=== PATIENT | male | born 1975 | race African-American/Black ===

== ENCOUNTER 2016-10-27 21:09 | Emergency (ER) | payer SELFPAY ==
--- NOTE | 2016-10-27 21:22 | PDOC ---
Rapid Medical Evaluation Time Seen by Provider: 10/27/16 21:19 Medical Evaluation: Allergies Allergy/AdvReac Type Severity Reaction Status Date / Time No Known Allergies Allergy Verified 11/28/13 22:12 10/27/16 21:19 I have performed a brief in-person evaluation of this patient. The patient presents with a chief complaint of: dysuria, penile discharge x 1 week Pertinent physical exam findings: vss I have ordered the following: gc, ua, ucx The pt will be seen in fast track
[2016-10-27 21:41] VITALS: BP 158/89; PULSE 84; TEMP 97.8; BMI 27.1
[2016-10-27 21:51] LABS: URINE APPEARANCE CLEAR; URINE BILIRUBIN NEGATIVE (NEGATIVE); URINE BLOOD NEGATIVE (NEGATIVE); URINE COLOR LTYELLOW; URINE GLUCOSE (UA) NEGATIVE (NEGATIVE); URINE KETONE NEGATIVE (NEGATIVE); URINE LEUK ESTERASE NEGATIVE (NEGATIVE); URINE NITRITE NEGATIVE (NEGATIVE); URINE PROTEIN NEGATIVE (NEGATIVE); URINE UROBILINOGEN NEGATIVE E.U./dl (0.2-1.0)
[2016-10-27] MEDS ORDERED: AZITHROMYCIN 1 GM PACKET PO ONE (22:27)
[2016-10-27] MEDS ORDERED: AZITHROMYCIN 1 GM PACKET ONE (22:44)
[2016-10-27] MEDS ORDERED: LIDOCAINE HCL/PF 1% SDV 5ML VIAL ONE ×2 (22:45→22:50)
[2016-10-27] MEDS ORDERED: cefTRIAXone SODIUM 1 GM VIAL ONE (22:45)
--- NOTE | 2016-10-27 23:04 | PDOC ---
History of Present Illness - General History Source: Patient Exam Limitations: No Limitations - History of Present Illness Initial Comments: 10/27/16 23:27 41-year-old male with past medical history of an STD 20 years ago presents with urethral discharge and dysuria for several days. Patient recently had unprotected sex with a female. She is also undergoing a doctor's visit for potential STD. Patient reports that this feels like his prior STD. <Shoaib Mensah - Last Filed: 10/27/16 23:27> - General History Source: Patient Exam Limitations: No Limitations <Hugo Ocasio - Last Filed: 11/01/16 09:42> - General Chief Complaint: Urinary Problem Stated Complaint: urinary problem Time Seen by Provider: 10/27/16 21:19 Past History <Shoaib Mensah - Last Filed: 10/27/16 23:27> - Psycho/Social/Smoking Cessation Hx Anxiety: No Suicidal Ideation: No Smoking History: Current every day smoker Have you smoked in the past 12 months: Yes Number of Cigarettes Smoked Daily: 0 Cigars Per Day: 3 Information on smoking cessation initiated: No Hx Alcohol Use: Yes (daily) Drug/Substance Use Hx: No Substance Use Type: Alcohol <Hugo Ocasio - Last Filed: 11/01/16 09:42> - Past Medical History Allergies/Adverse Reactions: Allergies Allergy/AdvReac Type Severity Reaction Status Date / Time No Known Allergies Allergy Verified 11/28/13 22:12 Home Medications: Ambulatory Orders No Home Medications 0 dose .ROUTE UTDICT 09/14/13 Amox-Tr/K Cl [Augmentin 875-125mg Tablet -] 1 tab PO BID #20 tablet 11/28/13 Review of Systems - Review of Systems Able to Perform ROS?: Yes Comments:: 10/27/16 23:29 GENERAL/CONSTITUTIONAL: No fever or chills. No weakness. HEAD, EYES, EARS, NOSE AND THROAT: No change in vision. No ear pain or discharge. No sore throat. CARDIOVASCULAR: No chest pain or shortness of breath. RESPIRATORY: No cough, wheezing, or hemoptysis. GASTROINTESTINAL: No nausea, vomiting, diarrhea or constipation. GENITOURINARY: (+) Dysuria. urethral discharge. No frequency. MUSCULOSKELETAL: No joint or muscle swelling or pain. No neck or back pain. SKIN: No rash NEUROLOGIC: No headache, vertigo, loss of consciousness, or change in strength/ sensation. ENDOCRINE: No increased thirst. No abnormal weight change. HEMATOLOGIC/LYMPHATIC: No anemia, easy bleeding, or history of blood clots. ALLERGIC/IMMUNOLOGIC: No hives or skin allergy. <Shoabi Mensah - Last Filed: 10/27/16 23:27> *Physical Exam - Vital Signs Last Vital Signs Temp Pulse Resp BP Pulse Ox 97.8 F 84 18 158/89 100 10/27/16 21:21 10/27/16 21:21 10/27/16 21:21 10/27/16 21:21 10/27/16 21:21 - Physical Exam Comments: 10/27/16 23:29 GENERAL: Awake, alert, and fully oriented, in no acute distress HEAD: No signs of trauma EYES: PERRLA, EOMI, sclera anicteric, conjunctiva clear ENT: Auricles normal inspection, hearing grossly normal, nares patent, oropharynx clear without exudates. Moist mucosa NECK: Normal ROM, supple, no lymphadenopathy, JVD, or masses LUNGS: Breath sounds equal, clear to auscultation bilaterally. No wheezes, and no crackles HEART: Regular rate and rhythm, normal S1 and S2, no murmurs, rubs or gallops ABDOMEN: Soft, nontender, normoactive bowel sounds. No guarding, no rebound. No masses EXTREMITIES: Normal range of motion, no edema. No clubbing or cyanosis. No cords, erythema, or tenderness GENITAL: Circumcised, testicle no lesions or rash. No testicular tenderness NEUROLOGICAL: Cranial nerves II through XII grossly intact. Normal speech, normal gait SKIN: Warm, Dry, normal turgor, no rashes or lesions noted. <Shoaib Mensah - Last Filed: 10/27/16 23:27> - Vital Signs Last Vital Signs Temp Pulse Resp BP Pulse Ox 97.8 F 84 18 158/89 100 10/27/16 21:21 10/27/16 21:21 10/27/16 21:21 10/27/16 21:21 10/27/16 21:21 <Hugo Ocasio - Last Filed: 11/01/16 09:42> ED Treatment Course - ADDITIONAL ORDERS Additional order review: Laboratory Results 10/27/16 21:15 Urine Color Ltyellow Urine Appearance Clear Urine pH 6.0 Ur Specific [place] 1.027 Urine Protein Negative Urine Glucose (UA) Negative Urine Ketones Negative Urine Blood Negative Urine Nitrite Negative Urine Bilirubin Negative Urine Urobilinogen Negative Ur Leukocyte Esterase Negative - Medications Given in the ED: ED Medications Discontinued Medications Generic Name Dose Route Start Last Admin Trade Name Mir PRN Reason Stop Dose Admin Azithromycin 1 gm 10/27/16 22:27 10/27/16 23:05 Zithromax - PO 10/27/16 22:28 1 gm ONCE ONE Administration Ceftriaxone Sodium 250 mg 10/27/16 22:27 10/27/16 23:04 Rocephin - IM 10/27/16 22:28 250 mg ONCE ONE Administration <Shoaib Mensah - Last Filed: 10/27/16 23:27> - ADDITIONAL ORDERS Additional order review: Laboratory Results 10/27/16 21:15 Urine Color Ltyellow Urine Appearance Clear Urine pH 6.0 Ur Specific [place] 1.027 Urine Protein Negative Urine Glucose (UA) Negative Urine Ketones Negative Urine Blood Negative Urine Nitrite Negative Urine Bilirubin Negative Urine Urobilinogen Negative Ur Leukocyte Esterase Negative <Hugo Ocasio - Last Filed: 11/01/16 09:42> Medical Decision Making - Medical Decision Making 10/27/16 23:04 A portion of this note was documented by scribe services under my direction. I have reviewed the details of the note, within reason, and agree with the documentation with the following case summary and management plan written by me. Patient treated in the ED. Nursing notes are reviewed and incorporated into the medical decision-making. Vital signs reviewed. Peripheral IV access obtained by the nurse, laboratory studies are drawn and sent, reviewed and interpreted by myself. Vital Signs Temp Pulse Resp BP Pulse Ox 97.8 F 84 18 158/89 100 10/27/16 21:21 10/27/16 21:21 10/27/16 21:21 10/27/16 21:21 10/27/16 21:21 41-year-old male with past medical history of an STD 20 years ago presents with urethral discharge and dysuria for several days. Patient recently had unprotected sex with a female. She is also undergoing a doctor's visit for potential STD. Patient reports that this feels like his prior STD. UA reviewed. We'll treat empirically for gonorrhea and chlamydia. Azithromycin and Ceftriaxone ordered. I discussed the physical exam findings, ancillary test results and final diagnoses with the patient. I answered all of the patient's questions. The patient was satisfied with the care received and felt comfortable with the discharge plan and treatment plan. The patient will call their primary care physician within 24 hours to arrange follow-up and will return to the Emergency Department with any new, persistant or worsening symptoms. <Hugo Ocasio - Last Filed: 11/01/16 09:42> *DC/Admit/Observation/Transfer - Attestations Scribe Attestion: 10/27/16 23:29 Documentation prepared by Shoaib Mensah, acting as certified medical biller for Hugo Ocasio MD. <Shoaib Mensah - Last Filed: 10/27/16 23:27> - Discharge Dispostion Admit: No <Hugo Ocasio - Last Filed: 11/01/16 09:42> Diagnosis at time of Disposition: STD (male) - Discharge Dispostion Disposition: HOME Condition at time of disposition: Stable - Referrals Referrals: Robe Frias MD [Primary Care Provider] - - Patient Instructions Printed Discharge Instructions: How to Detect and Treat STDs, Facts About Sexually Transmitted Infections Additional Instructions: Please call back in 2 to 3 days for your gonorrhea and chlamydia results. Call [phone] option # 1. You have been treated anyway for gonorrhea and chlamydia given your history. Please follow up with your doctor.
== END 2016-10-27 23:08 | disposition home or self-care (01) ==
LOC: JER 21:09 → JERFT 21:09 → JER 23:08
DX: A64 Unspecified sexually transmitted disease (principal); F17.210 Nicotine dependence, cigarettes, uncomplicated
CPT/HCPCS: 36415; 81003; 87086; 87491; 87591; 99281-25

== ENCOUNTER 2017-11-07 02:38 | Emergency (ER) | payer SELFPAY ==
--- NOTE | 2017-11-07 02:57 | PDOC ---
History of Present Illness - General Chief Complaint: Urinary Problem Stated Complaint: U.T.I. Time Seen by Provider: 11/07/17 02:56 - History of Present Illness Initial Comments: 11/07/17 03:13 42-year-old male complaining of dysuria and penile discharge for 3 days. Patient reports unprotected sex with a female partner several days ago. On sure of STD exposure. Patient denies fever chills, nausea vomiting diarrhea, abdominal pain, rash/sores. Denies past medical history of STDs. Past History - Past Medical History Allergies/Adverse Reactions: Allergies Allergy/AdvReac Type Severity Reaction Status Date / Time No Known Allergies Allergy Verified 11/07/17 03:10 Home Medications: Ambulatory Orders No Home Medications 0 dose .ROUTE UTDICT 09/14/13 Amox-Tr/K Cl [Augmentin 875-125mg Tablet -] 1 tab PO BID #20 tablet 11/28/13 Phenazopyridine HCl [Pyridium] 100 mg PO BID #10 tablet 11/07/17 COPD: No - Suicide/Smoking/Psychosocial Hx Smoking History: Current every day smoker Have you smoked in the past 12 months: Yes Number of Cigarettes Smoked Daily: 0 Cigars Per Day: 20 Hx Alcohol Use: Yes (daily) Drug/Substance Use Hx: No Substance Use Type: Alcohol Review of Systems - Review of Systems Able to Perform ROS?: Yes Is the patient limited Faroese proficient: No Constitutional: No: Symptoms Reported, See HPI, Chills, Diaphoresis, Fever, Loss of Appetite, Malaise, Night Sweats, Weakness, Weight Stable, Unintentional Wgt. Loss, Unexplained wgt Loss, Other : Yes: Dysuria, Flank Pain, Other (penile discharge). No: Testicular Mass, Testicular Swelling, Testicular Pain *Physical Exam - Vital Signs 11/07/17 03:15 Last Vital Signs Temp Pulse Resp BP Pulse Ox 98.1 F 103 H 14 115/67 98 11/07/17 03:10 11/07/17 03:10 11/07/17 03:10 11/07/17 03:10 11/07/17 03:10 - Physical Exam General Appearance: Yes: Appropriately Dressed Gastrointestinal/Abdominal: positive: Normal Bowel Sounds, Soft. negative: Tender Male Genitalia: positive: normal genitalia, discharge (clear penile discharge). negative: testicular tenderness, testicular mass, epididymus tender, CVAT, hematuria Rectal Exam: positive: normal exam Extremity: positive: Normal Capillary Refill, Normal Inspection, Normal Range of Motion Integumentary: positive: Normal Color, Dry, Warm Neurologic: positive: Fully Oriented, Alert, Normal Mood/Affect Progress Note - Progress Note Progress Note: A: STD exposure P: UA UCX CHlamudia/ gonorrhea. *DC/Admit/Observation/Transfer Diagnosis at time of Disposition: STD (male), Urethritis - Discharge Dispostion Disposition: HOME - Prescriptions Prescriptions: Phenazopyridine HCl [Pyridium] 100 mg PO BID #10 tablet - Referrals - Patient Instructions Printed Discharge Instructions: Let's Talk About Sex (and STIs) Additional Instructions: If you are treated for an STI, you should not have sex with anyone until 7 days after you start antibiotics and until you have no more symptoms. If you learn that you have an STI, you should tell all the people you have had sex with recently. They might also be infected (even if they have no symptoms) and need treatment. Can urethritis be prevented? Since urethritis is usually caused by an STI, you can reduce your chances of getting urethritis again by: Using a latex condom every time you have sex Avoiding sex when you or your partner has any symptoms that could be caused by an infection (such as itching, discharge, or pain with urination) Not having sex PYRIDUM is for burning sensation. it may change your urine ORANGE. - Post Discharge Activity
[2017-11-07] MEDS ORDERED: AZITHROMYCIN 1 GM PACKET PO ONE (03:01)
[2017-11-07 03:14] VITALS: BP 115/67; PULSE 103; TEMP 98.1; BMI 27.1
[2017-11-07 03:29] LABS: URINE APPEARANCE CLEAR; URINE BILIRUBIN NEGATIVE (NEGATIVE); URINE BLOOD NEGATIVE (NEGATIVE); URINE COLOR STRAW; URINE GLUCOSE (UA) NEGATIVE (NEGATIVE); URINE KETONE NEGATIVE (NEGATIVE); URINE LEUK ESTERASE NEGATIVE (NEGATIVE); URINE NITRITE NEGATIVE (NEGATIVE); URINE PROTEIN NEGATIVE (NEGATIVE); URINE UROBILINOGEN NEGATIVE mg/dL (0.2-1.0)
[2017-11-07] MEDS ORDERED: PHENAZOPYRIDINE HCL 100 MG TABLET (FP) PO ONE (03:37)
[2017-11-07] MEDS ORDERED: cefTRIAXone SODIUM 1 GM VIAL ONE (03:37)
[2017-11-07] MEDS ORDERED: AZITHROMYCIN 250 MG TABLET ONE (03:37)
[2017-11-07] MEDS ORDERED: PHENAZOPYRIDINE HCL 100 MG TABLET (FP) ONE (03:50)
== END 2017-11-07 03:59 | disposition home or self-care (01) ==
LOC: JER 02:38
DX: N34.2 Other urethritis (principal); Z20.2 Contact with and (suspected) exposure to infections with a predominantly sexual mode of transmission; F17.210 Nicotine dependence, cigarettes, uncomplicated
CPT/HCPCS: 36415; 81003; 87086; 87491; 87591; 99281-25

== ENCOUNTER 2018-12-20 18:12 | Emergency (ER) | payer SELFPAY ==
[2018-12-20 18:34] VITALS: BP 142/85; PULSE 102; TEMP 97.9; BMI 29.5
[2018-12-20] MEDS ORDERED: KETOROLAC TROMETHAMINE 60 MG/2 ML VIAL IM ONE (19:28)
[2018-12-20] MEDS ORDERED: AZITHROMYCIN 500 MG TABLET PO ONE (19:29)
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
[2018-12-20] MEDS ORDERED: AZITHROMYCIN 500 MG TABLET ONE (19:53)
[2018-12-20] MEDS ORDERED: KETOROLAC TROMETHAMINE 60 MG/2 ML VIAL ONE (19:53)
== END 2018-12-20 20:43 | disposition home or self-care (01) ==
LOC: JERFT 18:12
PROC: 3E0233Z Introduction of Anti-inflammatory into Muscle, Percutaneous Approach (ICD-10-PCS; principal; 2018-12-20)
PROC: 3E02329 Introduction of Other Anti-infective into Muscle, Percutaneous Approach (ICD-10-PCS; 2018-12-20)
DX: N34.2 Other urethritis (principal); A64 Unspecified sexually transmitted disease
CPT/HCPCS: 36415; 86593; 87491; 87591; 99281-25